=== PATIENT | female | born 1985 | race Caucasian/White ===

== ENCOUNTER 2021-03-14 09:07 | Emergency (ER) | payer OTHER ==
[~2021-03-14] VITALS: Ht 172.7 cm; Wt 63.6 kg
[2021-03-14 09:20] VITALS: BP 121/75
== END 2021-03-14 10:08 | disposition home or self-care (01) ==
LOC: EMS 09:12
DX: Z11.1 Encounter for screening for respiratory tuberculosis (principal)
CPT/HCPCS: 71045; 99283